=== PATIENT | female | born 1965 ===

== ENCOUNTER 2017-10-14 07:02 | Day surgery (SDC) | payer MEDICARE, MEDICAID ==
[~2017-10-14 07:02] MED LIST: Lactated Ringers 1,000 ML IV SCH; Lidocaine 1%/Sod Bicarbonate in NS 8.4% 1 ML Syringe IDERM PRN; Sodium Chloride 0.9% 10 ML Syringe FLUSH PRN
[2017-10-14] MEDS ORDERED: Propofol 200 MG/20 ML SDV ONE (07:18)
[2017-10-14] MEDS ORDERED: Lidocaine 1% 4 ML ONE (07:18)
[2017-10-14] MEDS ORDERED: fentaNYL 100 MCG/2 ML SDV ONE (07:18)
--- NOTE | 2017-10-14 07:28 | PCM.PREANE ---
Preanesthetic Assessment - Procedure Proposed Procedure: diagnostic colonoscopy - Anesthesia/Transfusion/Family Hx Anesthesia History: Prior Anesthesia Without Reaction Family History of Anesthesia Reaction: No Transfusion History: No Prior Transfusion(s) - Review of Systems General: No Symptoms Pulmonary: No Symptoms Cardiovascular: No Symptoms Gastrointestinal: No Symptoms Neurological: No Symptoms Other: Reports: Diabetes - Physical Assessment NPO Status Date: 10/13/17 NPO Status Time: 23:30 O2 Sat by Pulse Oximetry: 95 Respiratory Rate: 16 Vital Signs: Last Vital Signs Temp 97.2 F 10/14/17 07:10 Pulse 82 10/14/17 07:10 Resp 16 10/14/17 07:10 BP 131/80 10/14/17 07:10 Pulse Ox 95 10/14/17 07:10 Height: 5 ft 6 in Weight: 90.265 kg ASA Class: 2 Mental Status: Alert & Oriented x3 Airway Class: Mallampati = 1 Dentition: Reports: Normal Dentition, Missing Tooth/Teeth Thyro-Mental Finger Breadths: 3 Mouth Opening Finger Breadths: 3 ROM/Head Extension: Full Lungs: Clear to Auscultation, Normal Respiratory Effort Cardiovascular: Regular Rate, Regular Rhythm - Allergies Allergies/Adverse Reactions: Allergies Allergy/AdvReac Type Severity Reaction Status Date / Time No Known Allergies Allergy Verified 10/13/17 15:31 - Blood Blood Available: No - Acknowledgements Anesthesia Type Planned: MAC Pt an Appropriate Candidate for the Planned Anesthesia: Yes Alternatives and Risks of Anesthesia Discussed w Pt/Guardian: Yes Pt/Guardian Understands and Agrees with Anesthesia Plan: Yes PreAnesthesia Questionnaire HEENT History: Reports: Allergic Rhinitis, Sinusitis, Other (See Below) Other HEENT History: dry mouth, middle ear effusion, bilateral optic nerve atrophy- eye movements started at Cardiovascular History: Reports: Hypertension Respiratory History: Reports: Asthma, Sleep Apnea, Other (See Below) Other Respiratory History: URI Gastrointestinal History: Reports: Chronic Constipation, Colon Polyp, GERD, Other (See Below) Other Gastrointestinal History: ulcer Genitourinary History: Reports: UTI, Recurrent 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: Other (See Below) Other OB/BYN History: vaginal atrophy, vaginal pruritis Musculoskeletal History: Reports: RA, Other (See Below) Other Musculoskeletal History: hip pain, hip bursitis, low back pain Neurological History: Reports: Migraines Psychiatric History: Reports: Anxiety, Other (See Below) Other Psychiatric History: insomnia Endocrine/Metabolic History: Reports: Diabetes, Type II Hematologic History: Reports: None Immunologic History: Reports: None Oncologic (Cancer) History: Reports: None Dermatologic History: Reports: None - Past Surgical History Head Surgeries/Procedures: Reports: None HEENT Surgical History: Reports: Cataract Surgery, Naso-Sinus Surgery Cardiovascular Surgical History: Reports: None Respiratory Surgical History: Reports: None GI Surgical History: Reports: Bariatric Procedure, Colonoscopy Female Surgical History: Reports: Tubal Ligation Male Surgical History: Reports: None Endocrine Surgical History: Reports: None Neurological Surgical History: Reports: None Musculoskeletal Surgical History: Reports: None Oncologic Surgical History: Reports: None Dermatological Surgical History: Reports: None - SUBSTANCE USE Smoking Status *Q: Never Smoker Tobacco Use Within Last Twelve Months: No Second Hand Smoke Exposure: No Days Per Week of Alcohol Use: 0 Recreational Drug Use History: No - HOME MEDS Home Medications: Home Meds metFORMIN [Glucophage] 1,000 mg PO BID 08/20/14 [History] Albuterol [Proventil Neb Soln] 1 dose INH QID PRN 10/13/17 [History] Albuterol [Ventolin HFA] 2 puff INH Q4H PRN 10/13/17 [History] Albuterol/Ipratropium [DuoNeb 3.0-0.5 MG/3 ML] 1 dose NEB TID PRN 10/13/17 [ History] Ca Carbonate/Vitamin D3/Vit K [Calcium + D Soft Chewable Tab] 1 tab PO DAILY [History] Cholecalciferol (Vitamin D3) [Vitamin D3] 1,000 unit PO DAILY 10/13/17 [History] Clotrimazole [Mycelex] 10 mg PO Q4H PRN 10/13/17 [History] Cyanocobalamin (Vitamin B-12) [Vitamin B12] 2,500 mcg PO DAILY 10/13/17 [History ] Diclofenac Sodium 1 dose TOP QID 10/13/17 [History] Fexofenadine HCl [Luz Allergy] 60 mg PO DAILY 10/13/17 [History] Fluticasone Propionate [Flovent HFA 110 MCG] 2 puff INH BID 10/13/17 [History] Omeprazole 20 mg PO DAILY 10/13/17 [History] Rosuvastatin Calcium 10 mg PO DAILY 10/13/17 [History] SitaGLIPtin [Januvia] 100 mg PO DAILY 10/13/17 [History] Zolpidem Tartrate 5 - 10 mg PO BEDTIME PRN 10/13/17 [History] traMADol [Ultram] 50 mg PO TID PRN 10/13/17 [History] - CURRENT (IN HOUSE) MEDS Current Meds: Current Medications Lactated Ringer's (Ringers, Lactated) 1,000 mls @ 125 mls/hr IV ASDIRECTED DEVON Stop: 10/14/17 23:00 Lidocaine/Sodium Bicarbonate (Buffered Lidocaine 1% In Ns 8.4%) 0.25 ml IDERM ONETIME PRN PRN Reason: Prior to IV Start Stop: 10/14/17 18:00 Sodium Chloride (Saline Flush) 10 ml FLUSH ASDIRECTED PRN PRN Reason: Keep Vein Open Stop: 10/14/17 18:00 Discontinued Medications Fentanyl (Sublimaze) Confirm Administered Dose 100 mcg .ROUTE .STK-MED ONE Stop: 10/14/17 07:19 Lactated Ringer's (Ringers, Lactated) 1,000 mls @ 125 mls/hr IV ASDIRECTED [facility] Stop: 09/30/17 23:00 Lidocaine HCl (Xylocaine-Mpf 1%) Confirm Administered Dose 4 mls @ as directed .ROUTE .STK-MED ONE Stop: 10/14/17 07:19 Lidocaine/Sodium Bicarbonate (Buffered Lidocaine 1% In Ns 8.4%) 0.25 ml IDERM ONETIME PRN PRN Reason: Prior to IV Start Stop: 09/30/17 18:00 Propofol (Diprivan 20 Ml) Confirm Administered Dose 200 mg .ROUTE .STK-MED ONE Stop: 10/14/17 07:19 Sodium Chloride (Saline Flush) 10 ml FLUSH ASDIRECTED PRN PRN Reason: Keep Vein Open Stop: 09/30/17 18:00
--- NOTE | 2017-10-14 08:29 | PCM.OPNOTE ---
- General Post-Op/Procedure Note Date of Surgery/Procedure: 10/14/17 Operative Procedure(s): Colonoscopy Findings: Colonic diverticuli Anal tags Pre Op Diagnosis: History of colorectal polyps Post-Op Diagnosis: 1. Perianal skin tags. 2. Uncomplicated colonic diverticula Anesthesia Technique: MAC, Moderate Sedation Primary Surgeon: Gurpreet Rodríguez Pathology: None EBL in mLs: 0 Complications: None Condition: Good Free Text/Narrative:: After adequate IV sedation and analgesia was obtained with monitoring the patient was placed on her left side. Perianal inspection revealed a few small anal tags. Digital rectal examination was otherwise unremarkable. A lubricated colonoscope was then inserted into the rectum and advanced to the cecum without difficulty. The bowel preparation was excellent. The cecum and ascending colon were remarkable for one diverticulum. This was small and uncomplicated. The transverse and descending colons were endoscopically normal. The sigmoid had a few small diverticula as well. There were no mass lesions or inflammatory changes throughout any of these areas. Within the rectum in the retroflexed view there was some perianal tags. Fast Food Restaurant Manager photographs were taken for the patient and for the medical record.
[2017-10-14] MEDS ORDERED: Ondansetron 4 MG/2 ML SDV IVPUSH PRN (08:30)
--- NOTE | 2017-10-14 08:30 | PCM48HPAN ---
Post Anesthesia Note - EVALUATION WITHIN 48HRS OF ANESTHETIC Vital Signs in Normal Range: Yes Patient Participated in Evaluation: Yes Respiratory Function Stable: Yes Airway Patent: Yes Cardiovascular Function Stable: Yes Hydration Status Stable: Yes Pain Control Satisfactory: Yes Nausea and Vomiting Control Satisfactory: Yes Mental Status Recovered: Yes Pulse Rate: 80 SaO2: 96 Resp Rate: 12 Temperature: 99.6 F Blood Pressure: 98/55
[2017-10-14 09:14] VITALS: BP 145/95
== END 2017-10-14 09:10 | disposition home or self-care (01) ==
LOC: JD.SDS 07:02
PROVIDERS: ATTEND Surgery
DX: Z12.11 Encounter for screening for malignant neoplasm of colon (principal); K64.4 Residual hemorrhoidal skin tags; K57.30 Diverticulosis of large intestine without perforation or abscess without bleeding; I10 Essential (primary) hypertension; E11.9 Type 2 diabetes mellitus without complications; J45.909 Unspecified asthma, uncomplicated; K21.9 Gastro-esophageal reflux disease without esophagitis; G47.33 Obstructive sleep apnea (adult) (pediatric); F41.9 Anxiety disorder, unspecified; Z86.010 Personal history of colon polyps; Z79.51 Long term (current) use of inhaled steroids; Z79.84 Long term (current) use of oral hypoglycemic drugs; Z79.899 Other long term (current) drug therapy; Z98.84 Bariatric surgery status; Z83.71 Family history of colonic polyps
CPT/HCPCS: 82962; G0121; J2001; J3010; J7120; 00811; J2704

== ENCOUNTER 2019-08-03 22:05 | Emergency (ER) | payer MEDICARE, MEDICAID ==
[2019-08-03 22:16] VITALS: BP 171/103; PULSE 103
--- NOTE | 2019-08-03 22:48 | EDM.PDOC ---
ED HPI GENERAL MEDICAL PROBLEM - General Chief Complaint: Respiratory Problem Stated Complaint: cough sob Time Seen by Provider: 08/03/19 22:22 Source of Information: Reports: Patient History Limitations: Reports: No Limitations - History of Present Illness INITIAL COMMENTS - FREE TEXT/NARRATIVE: Ms. Camejo is a very pleasant 53-year-old woman with a past medical history significant for diabetes, who states that she developed bilateral ear pain and right facial pressure this past 08/01/2019. She was seen in the clinic yesterday, 08/02/2019, where she was diagnosed with a sinus infection and prescribed Augmentin, along with 2 inhalers, plus a nebulized medicine. The patient now presents to the ED stating that developed a nonproductive cough and dyspnea this morning. She has had clear rhinorrhea. She then developed chest tightness, a constant sensation made worse when she coughs, around 17:00 this evening. In addition, she continues to have the ear pain and facial pressure. The patient denies recent fever, chills, sore throat, nausea, vomiting, constipation, diarrhea, urinary symptoms, or palpitations. In addition to her prescription medications, the patient is also been taking [id number] Mucinex, Coricidin, and aspirin. The patient checks her blood glucose nearly every day, with her most recent blood glucose on 08/01/2019. It was 127. Her normal ranges between 101 130. Here in the ED, the patient's initial BP is found to be elevated at 171/103 with a HR of 103, however, it has since come down to 139/82 with a HR of 97, without treatment. She is afebrile, saturating 97% on room air. The patient's PCP is MARBIN Joseph. Her pain manager stylist is Dr. Carlos Myles. She did not receive an influenza vaccine this season, but agreed to receive one here today. - Related Data Allergies Allergy/AdvReac Type Severity Reaction Status Date / Time No Known Allergies Allergy Verified 08/03/19 22:10 Home Meds: Home Meds metFORMIN [Glucophage] 1,000 mg PO BID 08/20/14 [History] Albuterol [Proventil Neb Soln] 1 dose INH QID PRN 10/13/17 [History] Albuterol [Ventolin HFA] 2 puff INH Q4H PRN 10/13/17 [History] Albuterol/Ipratropium [DuoNeb 3.0-0.5 MG/3 ML] 1 dose NEB TID PRN 10/13/17 [ History] Calcium Carb/Vitamin D3/Vit K1 [Calcium + D Soft Chewable Tab] 1 tab PO DAILY [History] Cholecalciferol (Vitamin D3) [Vitamin D3] 1,000 unit PO DAILY 10/13/17 [History] Clotrimazole [Mycelex] 10 mg PO Q4H PRN 10/13/17 [History] Cyanocobalamin (Vitamin B-12) [Vitamin B12] 2,500 mcg PO DAILY 10/13/17 [History ] Diclofenac Sodium 1 dose TOP QID 10/13/17 [History] Fexofenadine HCl [Luz Allergy] 60 mg PO DAILY 10/13/17 [History] Fluticasone Propionate [Flovent HFA 110 MCG] 2 puff INH BID 10/13/17 [History] Omeprazole 20 mg PO DAILY 10/13/17 [History] Rosuvastatin Calcium 10 mg PO DAILY 10/13/17 [History] SitaGLIPtin [Januvia] 100 mg PO DAILY 10/13/17 [History] Zolpidem Tartrate 5 - 10 mg PO BEDTIME PRN 10/13/17 [History] traMADol [Ultram] 50 mg PO TID PRN 10/13/17 [History] Past Medical History HEENT History: Reports: Allergic Rhinitis, Other (See Below) (Legally blind since ) Cardiovascular History: Reports: High Cholesterol, Hypertension Respiratory History: Reports: Sleep Apnea Gastrointestinal History: Reports: Colon Polyp, Diverticulosis, GERD Genitourinary History: Reports: Urinary Incontinence (stress incontinence) Psychiatric History: Reports: Anxiety, Other (See Below) (Insomnia) Endocrine/Metabolic History: Reports: Diabetes, Type II, Obesity/BMI 30+ - Infectious Disease History Infectious Disease History: Reports: Hepatitis A - Past Surgical History HEENT Surgical History: Reports: Cataract Surgery (bilateral), Naso-Sinus Surgery GI Surgical History: Reports: Bariatric Procedure (Gastric sleeve around 2014), Colonoscopy (x 2 or 3) Female Surgical History: Reports: D&C (x 1), Tubal Ligation Social & Family History - Tobacco Use Smoking Status *Q: Never Smoker - Caffeine Use Caffeine Use: Reports: None - Alcohol Use Alcohol Use History: Yes Alcohol Use Frequency: Rarely - Recreational Drug Use Recreational Drug Use: No - Living Situation & Occupation Living situation: Reports: , Alone 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 Musculoskeletal: Reports: Back Pain (chronic) Neurological: Reports: Headache (chronic) ED EXAM, GENERAL - Physical Exam Exam: See Below Exam Limited By: No Limitations General Appearance: Alert, WD/WN, No Apparent Distress Eye Exam: Bilateral Eye: Nystagmus (chronic) Ears: Normal External Exam, Normal Canal, Hearing Grossly Normal, Other (Slight bulging of both TMs with clear fluid. No erythema or purulence.) Nose: No Blood, Clear Rhinorrhea, Other (Bilateral nasal mucosal edema) Throat/Mouth: Normal Inspection, Normal Lips, Normal Teeth, Normal Gums, Normal Oropharynx, Normal Voice, No Airway Compromise Head: Atraumatic, Normocephalic, Sinus Tenderness (slight, to right maxillary, only) Neck: Normal Inspection, Supple, Non-Tender, Full Range of Motion. No: Lymphadenopathy (L), Lymphadenopathy (R) Respiratory/Chest: No Respiratory Distress, Lungs Clear, Normal Breath Sounds, No Accessory Muscle Use. No: Decreased Breath Sounds, Crackles, Rhonchi, Wheezing, Stridor, Prolonged Expiration Cardiovascular: Normal Peripheral Pulses, Regular Rate, Rhythm, No Edema, No Gallop, No JVD, No Murmur, No Rub Peripheral Pulses: 4+: Radial (L), Radial (R) GI/Abdominal: Normal Bowel Sounds, Soft, Non-Tender, No Organomegaly, No Distention, No Abnormal Bruit, No Mass (Female) Exam: Deferred Rectal (Female) Exam: Deferred Back Exam: Normal Inspection, Full Range of Motion, NT Extremities: Normal Inspection, Normal Range of Motion, No Pedal Edema, Normal Capillary Refill Neurological: Alert, Oriented, Normal Cognition, No Motor/Sensory Deficits Psychiatric: Normal Affect Skin Exam: Warm, Dry, Intact, Normal Color, No Rash EKG INTERPRETATION EKG Date: 08/04/19 Time: 22:46 Rhythm: NSR Rate (Beats/Min): 94 [place]: Normal P-Wave: Present QRS: Normal ST-T: Normal QT: Normal Comparison: NA - No Prior EKG Course - Vital Signs Last Recorded V/S: Last Vital Signs Temp 36.5 C 08/03/19 22:10 Pulse 103 H 08/03/19 22:10 Resp 15 08/03/19 22:10 BP 171/103 H 08/03/19 22:10 Pulse Ox 97 08/03/19 22:10 - Orders/Labs/Meds Orders: Active Orders 24 hr Category Date Time Status EKG Documentation Completion [RC] STAT Care 08/03/19 22:43 Active Influenza Vaccine Charge [RC] .DISCHARGE Care 08/03/19 23:05 Active Ang Chest [CT] Stat Exams 08/04/19 00:09 Taken Chest 2V [CR] Stat Exams 08/03/19 22:43 Taken CULTURE STREP A CONFIRMATION [RM] Stat Lab 08/04/19 00:10 Results STREP SCRN A RAPID W CULT CONF [RM] Stat Lab 08/04/19 00:10 Results Isolation [COMM] Routine Oth 08/03/19 22:44 Ordered Labs: Laboratory Tests 08/03/19 08/03/19 08/03/19 Range/Units 22:55 22:55 22:55 WBC 8.13 (3.98-10.04) K/mm3 RBC 4.29 (3.98-5.22) M/mm3 Hgb 12.4 (11.2-15.7) gm/dl Hct 38.4 (34.1-44.9) % MCV 89.5 (79.4-94.8) fl MCH 28.9 (25.6-32.2) pg MCHC 32.3 (32.2-35.5) g/dl RDW Std Deviation 41.5 (36.4-46.3) fL Plt Count 258 (182-369) K/mm3 MPV 10.3 (9.4-12.3) fl Neutrophils % (Manual) 48 (40-60) % Band Neutrophils % 2 (0-10) % Lymphocytes % (Manual) 41 H (20-40) % Atypical Lymphs % 0 % Monocytes % (Manual) 7 (2-10) % Eosinophils % (Manual) 2 (0.7-5.8) % Basophils % (Manual) 0 L (0.1-1.2) Platelet Estimate Adequate Plt Morphology Comment Normal RBC Morph Comment Normal D-Dimer, Quantitative 0.93 H (0.19-0.50) mg/L Sodium 139 (136-145) mEq/L Potassium 4.0 (3.5-5.1) mEq/L Chloride 104 (98-107) mEq/L Carbon Dioxide 27 (21-32) mEq/L Anion Gap 12.0 (5-15) BUN 13 (7-18) mg/dL Creatinine 1.1 H (0.55-1.02) mg/dL Est Cr Clr Drug Dosing 41.51 mL/min Estimated GFR (MDRD) 52 (>60) mL/min BUN/Creatinine Ratio 11.8 L (14-18) Glucose 181 H (74-106) mg/dL Calcium 9.4 (8.5-10.1) mg/dL Total Bilirubin 0.2 (0.2-1.0) mg/dL AST 12 L (15-37) U/L ALT 16 (14-59) U/L Alkaline Phosphatase 90 (46-116) U/L Troponin I < 0.017 (0.00-0.056) ng/mL Total Protein 7.4 (6.4-8.2) g/dl Albumin 3.4 (3.4-5.0) g/dl Globulin 4.0 gm/dL Albumin/Globulin Ratio 0.9 L (1-2) Meds: Medications Discontinued Medications Generic Name Dose Route Start Last Admin Trade Name Freq PRN Reason Stop Dose Admin Sodium Chloride 1,000 mls @ 150 mls/hr 08/04/19 00:15 08/04/19 00:16 Normal Saline IV 150 mls/hr ASDIRECTED DEVON Administration Influenza Virus Vaccine 1 each 08/03/19 23:05 Pharmacy To Dose - Influenza Vaccine IM 08/03/19 23:06 ONETIME ONE Influenza Virus Vaccine 60 mcg 08/03/19 23:15 08/03/19 23:34 Fluzone Quad [id number] Syringe IM 08/03/19 23:16 Not Given .ONCE ONE - Re-Assessments/Exams Free Text/Narrative Re-Assessment/Exam: 08/03/19 22:45 The patient is likely suffering from a viral URI with cough, with chest tightness related to her cough, however, I have ordered a work-up that includes an ECG, chest x-ray, an influenza swab, and blood work to rule out more significant illness. 08/03/19 23:30 Notified by Mally EVANS that the patient received an influenza vaccine a few months ago. She was unaware that an influenza vaccine and a flu shot were the same thing. 08/04/19 00:01 Two-view chest radiograph appears to be grossly normal. The cardiac silhouette is within normal limits. No pulmonary vascular congestion. No pleural effusions. No focal infiltrate. No pneumothorax. One subcentimeter nodule noted in the left upper lobe and a second subcentimeter nodule noted in the right lower lobe. Both nodules are noted on prior chest x-ray dated 04/23/2018. Formal read per the Radiologist pending. The patient's CBC is unremarkable. Her CMP is remarkable for a creatinine slightly elevated at 1.1, with a bicarbonate normal at 13, and a blood glucose elevated at 181, with the remainder of her CMP being unremarkable. Her troponin is undetectably low. Her D-dimer is modestly elevated at 0.93. Her influenza swab returned negative. 08/04/19 00:09 Test results discussed with the patient. The patient would like to proceed with a CT angiogram of her chest to evaluate for a PE. She will be given IV fluid. In the meantime, the patient also mentioned that her throat is getting sore, therefore I have asked Niko EVANS to swab her for a rapid strep test. 08/04/19 01:08 The patient's rapid strep test returned negative. 08/04/19 01:47 CT angiogram of the chest is read by Oumar as: 1. No acute finding. 2. No central or segmental pulmonary embolus. 3. Cholelithiasis. 08/04/19 01:55 CTA and rapid strep test results discussed with the patient. I suspect that the patient is suffering from a viral URI and bilateral serous otitis media. Her chest discomfort is likely musculoskeletal due to her cough. I don't think she has a sinus infection. I am recommending a nasal decongestant spray and discontinuation of the Augmentin that she is on. The patient expressed understanding. The patient will be given an influenza vaccine prior to discharge. Departure - Departure Time of Disposition: 01:56 Disposition: Home, Self-Care 01 Condition: Good Clinical Impression: Viral URI with cough, Musculoskeletal chest pain, Acute serous otitis media, bilateral - Discharge Information *PRESCRIPTION DRUG MONITORING PROGRAM REVIEWED*: Not Applicable *COPY OF PRESCRIPTION DRUG MONITORING REPORT IN PATIENT SHASHANK: Not Applicable Instructions: Upper Respiratory Infection, Adult, Musculoskeletal Pain Referrals: Yary Marcelino PA-C [Physician Spanish Linguist] - Carlos Myles MD [Ordering Only Provider] - Forms: ED Department Discharge Additional Instructions: You were seen in the emergency room for a cough, shortness of breath, ear pain, and right facial pressure, along with chest tightness. Work-up in the ER included blood work, a rapid strep test, an influenza swab, a chest x-ray, a CT angiogram of your chest, and an ECG. Your entire work-up was unremarkable. You do not have pneumonia. You have not suffered a heart attack. You do not have a blood clot in your lungs. You do not have influenza. You do not have strep throat. Based on your history, physical exam, and ER tests, you are most likely suffering from a viral URI, also known as a common cold, and bilateral serous otitis media = fluid in your middle ear chambers, on both sides. Your chest discomfort is most likely musculoskeletal due to your coughing. Because no infection was found, we recommend that you discontinue the Augmentin. We recommend that you throw the remaining Augmentin into the trash. Do not flush it down the toilet or pour it down the drain. We recommend that you purchase oxymetazoline nasal spray and a "pump mist" bottle. [place] 1 spray up each nostril, wait 5 minutes, then spray a second spray up each nostril. Repeat every 12 hours, for maximum of 5 days. In addition to the oxymetazoline, we recommend that you purchase a nasal saline spray in a pressurized canister, such as "simply saline". [place] this up each nostril several times per day. Take [id number] Tylenol or ibuprofen as needed for discomfort. We recommend you discontinue the Mucinex and Coricidin, along with any other cough or cold remedies, as they have been shown to be of no benefit, but do have side effects, such as an upset stomach. If any other problems, please do not hesitate to return to the ER. Sepsis Event Note - Evaluation Sepsis Screening Result: No Definite Risk - Focused Exam Vital Signs: Vital Signs Temp Pulse Resp BP Pulse Ox 08/03/19 22:10 36.5 C 103 H 15 171/103 H 97 Date Exam was Performed: 08/04/19 Time Exam was Performed: 03:15 - My Orders Last 24 Hours: My Active Orders 08/03/19 22:43 EKG Documentation Completion [RC] STAT Chest 2V [CR] Stat 08/03/19 22:44 Isolation [COMM] Routine 08/03/19 23:05 Influenza Vaccine Charge [RC] .DISCHARGE 08/04/19 00:09 Ang Chest [CT] Stat 08/04/19 00:10 CULTURE STREP A CONFIRMATION [RM] Stat STREP SCRN A RAPID W CULT CONF [RM] Stat - Assessment/Plan Last 24 Hours: My Active Orders 08/03/19 22:43 EKG Documentation Completion [RC] STAT Chest 2V [CR] Stat 08/03/19 22:44 Isolation [COMM] Routine 08/03/19 23:05 Influenza Vaccine Charge [RC] .DISCHARGE 08/04/19 00:09 Ang Chest [CT] Stat 08/04/19 00:10 CULTURE STREP A CONFIRMATION [RM] Stat STREP SCRN A RAPID W CULT CONF [RM] Stat
[2019-08-03] MEDS ORDERED: FLU Vacc QS2019-20(6MOS+)/PF 60 MCG/0.5 ML SYRINGE IM ONE (23:15)
[2019-08-04] MEDS ORDERED: Sodium Chloride 0.9% 1,000 ML IV SCH (00:15)
--- NOTE | 2019-08-04 07:05 | CR ---
Chest: Two views of the chest were obtained. Comparison: Prior chest x-ray of 04/23/18. Small nodule is noted within the left upper lung. Nodule measures about 6 mm in size. This appears to be stable from prior chest x-ray. Lungs otherwise are clear. Heart size and mediastinum are normal. Bony structures show mild scattered degenerative change within the spine. Impression: 1. Stable nodule within the left upper chest. Given the interval change this is most likely benign. 2. Nothing acute is otherwise seen. Diagnostic code #2 This report was dictated in MDT
--- NOTE | 2019-08-04 07:05 | CT ---
CT chest Technique: Multiple axial sections through the chest were obtained. Intravenous contrast was utilized. Study has been performed as a pulmonary angiogram protocol. Findings: Pulmonary arteries are moderately well opacified. No filling defects are seen to indicate discrete pulmonary embolism. Aorta shows no aneurysm. Calcified mediastinal lymph nodes are seen. Nodule is identified within the left upper chest which is calcified and correlates to a nodule on chest x-ray compatible with granuloma. Lungs show no acute parenchymal change. Calcified granulomas are noted within the spleen. Multiple calcified gallstones are noted within the gallbladder. Small hiatal hernia is noted. Bone window settings were reviewed which show mild scattered degenerative change within the spine. No acute osseous finding is appreciated. Impression: 1. No findings of pulmonary embolism. 2. Calcified mediastinal lymph nodes, calcified granuloma within the left upper lung, calcified granulomas within the spleen. 3. Gallstones and other findings as noted above. 4. Nothing acute is appreciated. Diagnostic code #3 This report was dictated in MDT I agree with preliminary report from [facility], finalized on 08/04/19, 2:45 AM Central Time
== END 2019-08-04 02:11 | disposition home or self-care (01) ==
LOC: JD.ED 22:05
DX: H65.03 Acute serous otitis media, bilateral (principal); J06.9 Acute upper respiratory infection, unspecified; R07.89 Other chest pain; I10 Essential (primary) hypertension; K21.9 Gastro-esophageal reflux disease without esophagitis; F41.9 Anxiety disorder, unspecified; E66.9 Obesity, unspecified; E78.00 Pure hypercholesterolemia, unspecified; Z79.84 Long term (current) use of oral hypoglycemic drugs; Z79.899 Other long term (current) drug therapy; Z68.42 Body mass index [BMI] 45.0-49.9, adult
CPT/HCPCS: 36415; 71046; 71275; 80053; 84484; 85007; 85027; 85379; 87081; 87430; 87804; 93005; 96360; 96361; 99285; J7030